=== PATIENT | male | born 1960 | race Caucasian/White ===

== ENCOUNTER 2020-02-08 15:13 | Emergency (ER) | payer OTHER, SELFPAY ==
[2020-02-08 15:31] VITALS: BP 113/71; PULSE 69; RESP 18; TEMP 37.3; O2SAT 97
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
[2020-02-08] MEDS: TETANUS,DIPHTHERIA,AC PERTUSSIS ADULT (0.5 ML) BOOSTRIX IM (15:49)
== END 2020-02-08 15:59 | disposition home or self-care (01) ==
PROVIDERS: Emergency Provider Nurse Practitioner; PCP Family Medicine
DX: T22.212A Burn of second degree of left forearm, initial encounter (principal); X08.8XXA Exposure to other specified smoke, fire and flames, initial encounter; L25.9 Unspecified contact dermatitis, unspecified cause; Z23 Encounter for immunization; I10 Essential (primary) hypertension
CPT/HCPCS: 90471; 90715; 99213; G0463

== ENCOUNTER 2023-08-05 18:05 | Emergency (ER) | payer OTHER, SELFPAY ==
[2023-08-05 18:28] VITALS: BP 127/75; PULSE 74; RESP 14; TEMP 36.4; O2SAT 100
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
== END 2023-08-05 19:15 | disposition home or self-care (01) ==
PROVIDERS: Emergency Provider Nurse Practitioner; PCP Physician Assistant
DX: S61.012A Laceration without foreign body of left thumb without damage to nail, initial encounter (principal); W45.8XXA Other foreign body or object entering through skin, initial encounter; I10 Essential (primary) hypertension; M10.9 Gout, unspecified
CPT/HCPCS: 12002; 99212; G0463

== ENCOUNTER 2023-10-04 15:59 | Emergency (ER) | payer OTHER, SELFPAY ==
[2023-10-04 16:06] VITALS: BP 121/82; PULSE 88; RESP 20; TEMP 36.7; O2SAT 100
--- NOTE | 2023-10-04 16:36 | ECG_ITS ---
SEE SCANNED COPY FOR CONFIRMED REPORT MTDD
--- NOTE | 2023-10-04 16:37 | ED.SOB ---
HPI - SOB/Dyspnea General Chief Complaint: Shortness of Breath/Dyspnea Stated Complaint: SOB Time Seen by Provider: 10/04/23 16:26 Source: patient and RN notes reviewed Mode of arrival: ambulatory Limitations: no limitations History of Present Illness HPI Narrative: Patient presents today with a 3-4 day history of shortness of breath and chest tightness with mild cough. Denies fever, or recent illness. States he does have some allergy symptoms such as postnasal drainage which he has been taking Zyrtec and Flonase for. He also reports some chest discomfort when he takes a deep breath. Denies any cardiac or pulmonary history aside from asthma as a child. Review of his chart shows that he takes lisinopril. Related Data Home Medications Medication Instructions Recorded Confirmed lisinopril 20 mg tablet 20 mg PO DAILY 02/08/20 10/04/23 allopurinol 100 mg tablet 100 mg PO DAILY 08/05/23 10/04/23 cetirizine 10 mg PO DAILY 10/04/23 10/04/23 fluticasone propionate 50 2 spray intranasal DAILY PRN 10/04/23 10/04/23 mcg/actuation nasal Allergy Symptoms spray,suspension (Flonase Allergy Relief) Allergies Allergy/AdvReac Type Severity Reaction Status Date / Time No Known Allergies Allergy Mild Verified 10/04/23 16:13 Review of Systems Review of Systems: CONSTITUTIONAL: Denies body aches, fever, chills, or sweats. EYES: Denies visual changes, redness, or discharge. ENT: Denies rhinorrhea, congestion, sore throat, or otalgia. CARDIOVASCULAR: Denies chest pain, palpitations, or edema.+ chest tightness and discomfort RESPIRATORY: + shortness of breath, mild cough GASTROINTESTINAL: Denies abdominal pain, nausea, vomiting, or diarrhea. GENITOURINARY: Denies dysuria or hematuria. SKIN: Denies rash, itching, or wounds. MUSCULOSKELETAL: Denies back pain, joint pain, or myalgia. NEUROLOGIC: Denies headache, numbness, tingling, or weakness. PSYCH: Denies depression or anxiety. [facility] Past Medical History Medical History (Updated 10/04/23 @ 17:04 by Angelita Hernández, SUPERIOR COURT JUSTICE, [place]) Gout Hypertension Comments At time of signature, I have reviewed and agree with nursing past medical, surgical, social and family history unless otherwise noted. Please see nursing chart for further information. There is no relevant family history pertinent to the presenting complaint Exam Narrative: GENERAL: Well-appearing, well-nourished, and in no acute distress. HEAD: Normocephalic, atraumatic. EYES: EOMI. No redness or drainage. Conjunctivae normal. ENT: Mucous membranes pink and moist. Nares clear. No rhinorrhea. TMs normal bilaterally. Throat normal. Uvula midline. NECK: Normal AROM. Supple. No lymphadenopathy. CHEST: No respiratory distress. Clear to auscultation. Chest is nontender. HEART: Regular rate and rhythm. No murmur appreciated. EXTREMITIES: Normal range of motion. No edema. SKIN: Warm, dry, no rash. Capillary refill normal. Normal skin turgor. NEURO: No focal deficits. Alert and oriented x3. Gait steady. PSYCH: Normal affect. No signs of depression or anxiety. Course Course Level of Care: Express Care Visit Vital Signs Vital signs: Vital Signs Temperature 98.1 F 10/04/23 16:06 Pulse Rate 88 10/04/23 16:06 Respiratory Rate 20 10/04/23 16:06 Blood Pressure 121/82 10/04/23 16:06 Pulse Oximetry 100 10/04/23 16:06 Oxygen Delivery Room Air 10/04/23 16:06 Temperature 98.1 F 10/04/23 16:06 Pulse Rate 88 10/04/23 16:06 Respiratory Rate 20 10/04/23 16:06 Blood Pressure 121/82 10/04/23 16:06 Pulse Oximetry 100 10/04/23 16:06 Oxygen Delivery Room Air 10/04/23 16:06 Reviewed MDM - SOB/Dyspnea MDM Narrative Medical decision making narrative: EKG normal. Offered patient transfer to the ER for further evaluation. He has declined. Would like to call his fitting room associate tomorrow. Discussed if symptoms worsen that he needs to go to the ER for further evaluation. Kacie
== END 2023-10-04 17:15 | disposition home or self-care (01) ==
PROVIDERS: Emergency Provider Nurse Practitioner; PCP Physician Assistant
DX: R06.02 Shortness of breath (principal); M10.9 Gout, unspecified; I10 Essential (primary) hypertension
CPT/HCPCS: 93005; 99213; G0463

== ENCOUNTER 2024-03-08 11:48 | Emergency (ER) | payer OTHER, SELFPAY ==
[2024-03-08 11:58] VITALS: BP 113/75; PULSE 90; RESP 16; TEMP 36.9; O2SAT 99
--- NOTE | 2024-03-08 12:23 | ED.UPPEXIN ---
HPI - Extremity Injury (Upper) General Chief Complaint: Extremity Injury, Upper Stated Complaint: Left Elbow Pain Time Seen by Provider: 03/08/24 12:23 Source: patient Mode of arrival: ambulatory Limitations: no limitations History of Present Illness HPI narrative: 64 yo M presents with pain to L elbow for 1 week. Worse with movement. Denies injury. Reports recent moving boxes and pain started shortly after. Has had tennis elbow in the past and was given steroid dosepak. Denies numbness/tingling. NV intact. All systems reviewed and negative except as noted above. Related Data Home Medications Medication Instructions Recorded Confirmed lisinopril 20 mg tablet 20 mg PO DAILY 02/08/20 03/08/24 allopurinol 100 mg tablet 100 mg PO DAILY 08/05/23 03/08/24 cetirizine 10 mg PO DAILY 10/04/23 03/08/24 fluticasone propionate 50 2 spray intranasal DAILY PRN 10/04/23 03/08/24 mcg/actuation nasal Allergy Symptoms spray,suspension (Flonase Allergy Relief) Allergies Allergy/AdvReac Type Severity Reaction Status Date / Time No Known Allergies Allergy Mild Verified 03/08/24 12:01 Review of Systems Review of Systems: CONSTITUTIONAL: Denies fever, chills, or sweats. EYES: Denies visual changes, redness, or discharge. ENT: Denies rhinorrhea, congestion, sore throat, or otalgia. CARDIOVASCULAR: Denies chest pain, palpitations, or edema. RESPIRATORY: Denies cough or dyspnea. GASTROINTESTINAL: Denies abdominal pain, nausea, vomiting, or diarrhea. GENITOURINARY: Denies dysuria or hematuria. SKIN: Denies rash or itching. MUSCULOSKELETAL: Denies back pain, joint pain, or myalgia. Reports pain to left elbow. NEUROLOGIC: Denies headache, numbness, or weakness. PSYCHIATRIC: Denies anxiety or depression. All other systems reviewed are negative, except as documented in HPI. PMFSH Past Medical History Medical History (Updated 03/08/24 @ 12:33 by Raquel Carolina NP) Gout Hypertension Comments At time of signature, agree with nursing past medical, surgical, social and family history. There is no relevant family history pertinent to the presenting complaint. Exam Narrative: GENERAL: This is a well-nourished, well-developed patient, in no apparent distress. HEAD: normocephalic, atraumatic. EYES: PERRL. Sclera clear/white. Vision is grossly intact. EARS: External ears normal NOSE: External nose normal NECK: Neck supple, non-tender without lymphadenopathy, masses or thyromegaly. CARDIOVASCULAR: Regular rate and rhythm without murmurs, gallops, or rubs. RESPIRATORY: Clear to auscultation. Breath sounds equal bilaterally. No wheezes, rales, or rhonchi. SKIN: warm, Dry, intact with no suspicious lesions or rash, good texture and turgor. NEURO: awake, alert, and oriented to person, place and time. There were no obvious focal neurologic abnormalities. EXTREMITIES: tenderness to lateral epicondyle L elbow with extensor tendon pain. ROM and distal NV intact. 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 Course Course Level of Care: Express Care Visit Vital Signs Vital signs: Vital Signs Temperature 36.9 C 03/08/24 11:58 Pulse Rate 90 03/08/24 11:58 Respiratory Rate 16 03/08/24 11:58 Blood Pressure 113/75 03/08/24 11:58 Pulse Oximetry 99 03/08/24 11:58 Oxygen Delivery Room Air 03/08/24 11:58 Temperature 36.9 C 03/08/24 11:58 Pulse Rate 90 03/08/24 11:58 Respiratory Rate 16 03/08/24 11:58 Blood Pressure 113/75 03/08/24 11:58 Pulse Oximetry 99 03/08/24 11:58 Oxygen Delivery Room Air 03/08/24 11:58 Reviewed MDM - Extremity Injury (Upper) MDM Narrative Medical decision making narrative: At time of signature, agree with nursing past medical, surgical, social and family history. There is no relevant family history pertinent to the presenting complaint. Differential Diagnosis Differential diagnosis: Likely other ( tennis elbow, tendinitis) Discharge Plan Disch
== END 2024-03-08 12:37 | disposition home or self-care (01) ==
PROVIDERS: Emergency Provider Nurse Practitioner Family; PCP Physician Assistant
DX: M77.12 Lateral epicondylitis, left elbow (principal); I10 Essential (primary) hypertension; M10.9 Gout, unspecified
CPT/HCPCS: 99213; G0463

== ENCOUNTER 2024-08-11 13:42 | Emergency (ER) | payer OTHER, SELFPAY ==
[2024-08-11 13:57] VITALS: BP 150/84; PULSE 78; RESP 16; TEMP 36.1; O2SAT 98
--- NOTE | 2024-08-11 14:12 | ED.URI ---
HPI - URI/Sore Throat General Chief Complaint: Upper Respiratory Infection Stated Complaint: Cold symptoms, lump on back of right foot Time Seen by Provider: 08/11/24 14:00 Source: patient Mode of arrival: ambulatory Limitations: no limitations History of Present Illness HPI Narrative: 64-year-old male presents with complaint of sinus congestion, pressure, nasal congestion for 2-3 weeks. Reports postnasal drainage. Using Flonase and [id number] sinus meds with no relief of symptoms. Afebrile. Patient also reports pain to right heel for 2 days. No known injury. Recently started doing pushups but is not sure if this could be the cause of pain. All systems reviewed and negative except as noted above. Related Data Home Medications ?Medication ?Instructions ?Recorded ?Confirmed ?Last Taken ?Type allopurinol 100 mg tablet 100 mg PO DAILY 08/05/23 03/08/24 Unknown History cetirizine 10 mg PO DAILY 10/04/23 03/08/24 Unknown History fluticasone propionate 50 2 spray intranasal DAILY PRN 10/04/23 03/08/24 Unknown History mcg/actuation nasal Allergy Symptoms spray,suspension (Flonase Allergy Relief) lisinopril 10 mg tablet mg 08/11/24 Unknown History Allergies Allergy/AdvReac Type Severity Reaction Status Date / Time No Known Allergies Allergy Mild Verified 08/11/24 13:55 Review of Systems Review of Systems: CONSTITUTIONAL: Denies fever, chills, or sweats. EYES: Denies visual changes, redness, or discharge. ENT: Reports rhinorrhea, congestion, sinus pressure, congestion. Denies sore throat, or otalgia. CARDIOVASCULAR: Denies chest pain, palpitations, or edema. RESPIRATORY: Denies cough or dyspnea. GASTROINTESTINAL: Denies abdominal pain, nausea, vomiting, or diarrhea. GENITOURINARY: Denies dysuria or hematuria. SKIN: Denies rash or itching. MUSCULOSKELETAL: Denies back pain, joint pain, or myalgia. reports pain to right Achilles tendon. NEUROLOGIC: Denies headache, numbness, or weakness. PSYCHIATRIC: Denies anxiety or depression. All other systems reviewed are negative, except as documented in HPI. [facility], LATER [facility] Past Medical History Medical History (Updated 08/11/24 @ 14:22 by Raquel Carolina NP) Gout Hypertension Comments At time of signature, agree with nursing past medical, surgical, social and family history. There is no relevant family history pertinent to the presenting complaint. Exam Narrative: GENERAL: This is a well-nourished, well-developed patient, in no apparent distress. HEAD: normocephalic, atraumatic. EYES: PERRL. Sclera clear/white. Vision is grossly intact. EARS: External ears normal, auditory canals clear and without drainage, Fluid bilateral TMs without erythema or perforation. Hearing grossly intact. NOSE: External nose normal with Moderate congestion, purulent nasal drainage, erythema and swelling to bilateral nares. Frontal sinus tenderness on palpation. THROAT: Mucous membranes moist, Mild erythema With postnasal drainage. No swelling or exudates. NECK: Neck supple, non-tender without lymphadenopathy, masses or thyromegaly. CARDIOVASCULAR: Regular rate and rhythm without murmurs, gallops, or rubs. RESPIRATORY: Clear to auscultation. Breath sounds equal bilaterally. No wheezes, rales, or rhonchi. SKIN: warm, Dry, intact with no suspicious lesions or rash, good texture and turgor. NEURO: awake, alert, and oriented to person, place and time. There were no obvious focal neurologic abnormalities. EXTREMITIES: tenderness on palpation of Achilles tendon without erythema or swelling. Course Course Level of Care: Express Care Visit Vital Signs Vital signs: Vital Signs Temperature 36.1 C L 08/11/24 13:57 Pulse Rate 78 08/11/24 13:57 Respiratory Rate 16 08/11/24 13:57 Blood Pressure 150/84 H 08/11/24 13:57 Pulse Oximetry 98 08/11/24 13:57 Oxygen Delivery Room Air 08/11/24 13:57 Temperature 36.1 C L 08/11/24 13:57 Pulse Rate 78 08/11/24 13:57 Respiratory Rate 16 08/11/24 13:57 Blood Pressure 150/84 H 08/11/24 13:57 Pulse Oximetry 98 08/11/24 13:57 Oxygen Delivery Room Air 08/11/24 13:57 Reviewed MDM - URI/Sore Throat MDM Narrative Medical decision making narrative: will treat patient for bacterial sinusitis due to duration of symptoms. Will prescribe meloxicam for right Achilles tendinitis. X-ray not warranted due to no swelling or deformity or injury. It is possible new activity of pushups is causing Achilles tendinitis. Recommend patient modify his position with doing pushups. Recommend care physician if symptoms not improving. Please be advised this is a medical document. It is intended for jqqn-fo-qdho communication. It is written in medical language and may contain unfamiliar abbreviations or verbiage. Medical documents are intended to carry relevant information, facts as evident, and the clinical opinion of the practitioner at the time of the encounter. This report may have been done utilizing a voice recognition system. Attempts have been made to correct errors. However, there may be uncorrected grammatical, spelling, and recognition errors present. The file time of this note does not necessarily represent the time of service. Differential Diagnosis Differential diagnosis: Likely upper respiratory infection, sinusitis and viral infection Discharge Plan Discharge Clinical Impression: Achilles tendinitis of right lower extremity, Acute bacterial sinusitis Patient Disposition: Home, Self-Care Condition: Stable Instructions: Sinusitis (ED), Achilles Tendinitis (ED) Additional Instructions: Take medications as prescribed. Continue [id number] Flonase daily as directed on packaging. Apply ice as needed for pain to Achilles tendon. Do stretching exercises as tolerated. Follow up with your doctor pain improving. Patient Language: [place] Prescriptions: New doxycycline hyclate 100 mg capsule 100 mg PO BID 7 Days Qty: 14 0RF meloxicam 7.5 mg tablet 7.5 mg PO DAILY Qty: 30 0RF methylprednisolone [Medrol (Jose M)] 4 mg tablets,dose pack See Rx Instructions PO .COMPLEX Qty: 21 0RF Rx Instructions: orally per package directions No Action allopurinol 100 mg tablet 100 mg PO DAILY fluticasone propionate [Flonase Allergy Relief] 50 mcg/actuation [place],Suspension 2 spray INTRANASAL DAILY PRN (Reason: Allergy Symptoms) Rx Instructions: administer into each nostril cetirizine 10 mg PO DAILY methylprednisolone [Medrol (Jose M)] 4 mg tablets,dose pack See Rx Instructions PO .COMPLEX Qty: 21 0RF Rx Instructions: orally per package directions lisinopril 10 mg tablet Follow-up/Referrals: PHYSICIAN NOT ON STAFF,NONSTAFF [Primary Care Provider] - Time of Disposition: 14:23
== END 2024-08-11 14:30 | disposition home or self-care (01) ==
PROVIDERS: Emergency Provider Nurse Practitioner Family
DX: M76.61 Achilles tendinitis, right leg (principal); J01.90 Acute sinusitis, unspecified; I10 Essential (primary) hypertension; M10.9 Gout, unspecified
CPT/HCPCS: 99213; G0463

== ENCOUNTER 2025-02-26 15:17 | Emergency (ER) | payer OTHER, SELFPAY ==
--- OUTSIDE RECORDS SUMMARY | 2023-12-02 16:30 | XMS_ITS ---
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 Conversion Encounter Medications Medication SIG (Take, Route, Frequency, Duration) Notes Start Date End Date Status Lisinopril 10 MG 1 tab(s) orally once a day Active SIT (TRADITIONAL) VARIABLE PER SCHEDULE SC PER SCHEDULE; Duration: TO BE DETERMINED *Please review for potential replacement for e-prescription and drug interaction check* Active NASAL WASHES N/A DIRECTED INTRANASALLY NEEDED; Duration: 30 *Please review for potential replacement for e-prescription and drug interaction check* Active Auvi-Q 0.3 MG/0.3ML 0.3 mg intramuscularly once; Duration: 30 day(s) Active Flonase Allergy Relief 50 MCG/ACT 2 spray(s) intranasally (avoid nasal septum) once a day; Duration: 30 day(s) Active ZyrTEC Allergy 10 MG 1 tab(s) orally once a day Active PAZEO 0.7% 1 GTT IN EACH AFFECT ED EYE ONCE A DAY *Please review for potential replacement for e-prescription and drug interaction check* Active EpiPen 2-Jose M 0.3 MG/0.3ML as directed intramuscularly once; Duration: 30 day(s) 06/16/2021 Active Encounters Encounter Location Date Provider Diagnosis [facility] [address] [place] [address] 12/02/2023 Provider ZFahad-Migration Plan Of Treatment No Information Progress Notes * [place]:1960 (65 yo M)Acc No.[id number]:12/02/2023 Patient: Dieudonne WILSON Provider: Chrissy Sepulveda :1960 A ge:63 Y S ex:Male Date:12/02/2023 Address:[address] [place], [place] [id number] Pcp:Celio Senior MD Subjective: * Chief Complaints: * 1 . [facility] Conversion Encounter. * Medical History: * Medications: T aking Lisinopril 10 MG Tablet 1 tab(s) orally once a day , Taking PAZEO 0.7% SOLUTION 1 GTT IN EACH AFFECTED EYE ONCE A DAY , Notes to Pharmacist: *Please review for potential replacement for e-prescription and drug interaction check*, Taking EpiPen 2-Jose M 0.3 MG/0.3ML Solution Auto-injector as directed intramuscularly once , Taking ZyrTEC Allergy 10 MG Tablet 1 tab(s) orally once a day , Taking Flonase Allergy Relief 50 MCG/ACT Suspension 2 spray(s) intranasally (avoid nasal septum) once a day , Taking NASAL WASHES N/A 1 QUART OF STERILIZED TAP WATER OR DISTILLED WATER, 1 TSP NACL, 1 PINCH OF BAKING SODA DIRECTED INTRANASALLY NEEDED , Notes to Pharmacist: *Please review for potential replacement for e-prescription and drug interaction check*, Taking Auvi-Q 0.3 MG/0.3ML Solution Auto-injector 0.3 mg intramuscularly once , Taking SIT (TRADITIONAL) VARIABLE SEE RECORD PER SCHEDULE SC PER SCHEDULE , Notes to Pharmacist: *Please review for potential replacement for e-prescription and drug interaction check* Objective: * Vitals: Assessment: Plan: * Treatment: * Billing Information: * Visit Code: * Procedure Codes: * Electronic signature of Argelia schaffer [facility]-Migration on 02/26/2025 at 03:41 PM CDT Sign off status: Pending * Provider: Chrissy Sepulveda Date: 0 12/02/2023 Generated for Richard barker/Radha/Katyaitting on: 0 02/26/2025 03:41 PM CDT
--- NOTE | ~2025-02-26 | XR_ITS ---
EXAMINATION: XR ankle LT min 3V, 02/26/2025 15:23 CDT HISTORY: lateral pain, twisting mechanism COMPARISON: No comparisons available. Findings: There is a remote corticated fracture of the medial malleolus, no acute fracture identified No significant degenerative changes. Soft tissues unremarkable. Impression: No acute fracture or malalignment. Reviewed, dictated and finalized at location A. Impression: No acute fracture or malalignment.
[2025-02-26 15:25] VITALS: BP 140/91; PULSE 95; RESP 18; TEMP 36.1; O2SAT 100
--- NOTE | 2025-02-26 15:26 | ED.GENADULT ---
HPI - General Adult General Chief complaint: Extremity Injury, Lower Stated complaint: L ankle pain Source: patient Mode of arrival: ambulatory Limitations: no limitations History of Present Illness HPI narrative: Pt is a 65 y/o male presenting with c/o L. ankle pain s/p injury. Pt reports slipping on gravel last night, causing him to 'roll' his L. ankle. He states he fell onto his buttocks. He denies striking his head. He denies LOC. He denies feeling dizzy or lightheaded prior to fall. 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 NO paresthesias. No hx of previous fracture to the LLE. No additional complaints. Related Data Home Medications ?Medication ?Instructions ?Recorded ?Confirmed ?Last Taken ?Type allopurinol 100 mg tablet 100 mg PO DAILY 08/05/23 02/26/25 Unknown History cetirizine 10 mg PO DAILY 10/04/23 02/26/25 Unknown History fluticasone propionate 50 2 spray intranasal DAILY PRN 10/04/23 02/26/25 Unknown History mcg/actuation nasal Allergy Symptoms spray,suspension (Flonase Allergy Relief) lisinopril 10 mg tablet mg 08/11/24 Unknown History Allergies Allergy/AdvReac Type Severity Reaction Status Date / Time No Known Allergies Allergy Mild Verified 02/26/25 15:19 Review of Systems Review of Systems: CONSTITUTIONAL: Denies body aches, fever, chills, or sweats. EYES: Denies visual changes, redness, or discharge. ENT: Denies rhinorrhea, congestion, sore throat, or otalgia. CARDIOVASCULAR: Denies chest pain, palpitations, or edema. RESPIRATORY: Denies cough or dyspnea. GASTROINTESTINAL: Denies abdominal pain, nausea, vomiting, or diarrhea. GENITOURINARY: Denies dysuria or hematuria. SKIN: Denies rash, itching, or wounds. MUSCULOSKELETAL: reports left ankle pain, lateral aspect. denies neck pain denies back pain NEUROLOGIC: Denies headache, numbness, tingling, or weakness. PSYCH: Denies depression or anxiety. All systems reviewed & are unremarkable except as noted in HPI and below (HPI) PMFSH Past Medical History Medical History Gout Hypertension Exam Narrative: GENERAL: Well-appearing, well-nourished, and in no acute distress. HEAD: Normocephalic, atraumatic. EYES: EOMI. No redness or drainage. Conjunctivae normal. NECK: Normal AROM. Supple. CHEST: No respiratory distress. HEART: Regular rate Normal peripheral pulses. MUSCULOSKELETAL: No bony tenderness. EXTREMITIES: +edema to the lateral aspect of the L. ankle. Unable to elicit any TTP. +FROM but does report pain with passive inversion and eversion. The LLE is without erythema, ecchymosis, open wounds. SKIN: Warm, dry, no rash. Capillary refill normal. Normal skin turgor. NEURO: No focal deficits. Alert and oriented x3. Gait steady. PSYCH: Normal affect. No signs of depression or anxiety. Course Course Level of Care: Express Care Visit Vital Signs Vital signs: Vital Signs Temperature 97.0 F L 02/26/25 15:25 Pulse Rate 95 02/26/25 15:25 Respiratory Rate 18 02/26/25 15:25 Blood Pressure 140/91 H 02/26/25 15:25 Pulse Oximetry 100 02/26/25 15:25 Oxygen Delivery Room Air 02/26/25 15:25 Temperature 97.0 F L 02/26/25 15:25 Pulse Rate 95 02/26/25 15:25 Respiratory Rate 18 02/26/25 15:25 Blood Pressure 140/91 H 02/26/25 15:25 Pulse Oximetry 100 02/26/25 15:25 Oxygen Delivery Room Air 02/26/25 15:25 Medical Decision Making MDM Narrative Medical decision making narrative: Discussed elevated blood pressure readings with patient and advised daily BP monitoring and f/u with PCP if persisting. Vital Signs Vital Signs: Vital Signs Temperature 97.0 F L 02/26/25 15:25 Pulse Rate 95 02/26/25 15:25 Respiratory Rate 18 02/26/25 15:25 Blood Pressure 140/91 H 02/26/25 15:25 Pulse Oximetry 100 02/26/25 15:25 Oxygen Delivery Room Air 02/26/25 15:25 Temperature 97.0 F L 02/26/25 15:25 Pulse Rate 95 02/26/25 15:25 Respiratory Rate 18 02/26/25 15:25 Blood Pressure 140/91 H 02/26/25 15:25 Pulse Oximetry 100 02/26/25 15:25 Oxygen Delivery Room Air 02/26/25 15:25 Imaging Data Radiologist's impression: NAF, old fracture to medial malleolus Discharge Plan Discharge Clinical Impression: Ankle sprain and strain, HTN (hypertension) Patient Disposition: Home Condition: Stable Instructions: Ankle Sprain (ED) Patient Language: Georgian Prescriptions: No Action allopurinol 100 mg tablet 100 mg PO DAILY fluticasone propionate [Flonase Allergy Relief] 50 mcg/actuation [place],Suspension 2 spray INTRANASAL DAILY PRN (Reason: Allergy Symptoms) Rx Instructions: administer into each nostril cetirizine 10 mg PO DAILY methylprednisolone [Medrol (Jos Em)] 4 mg tablets,dose pack See Rx Instructions PO .COMPLEX Qty: 21 0RF Rx Instructions: orally per package directions lisinopril 10 mg tablet meloxicam 7.5 mg tablet 7.5 mg PO DAILY Qty: 30 0RF methylprednisolone [Medrol (Jose M)] 4 mg tablets,dose pack See Rx Instructions PO .COMPLEX Qty: 21 0RF Rx Instructions: orally per package directions Follow-up/Referrals: PHYSICIAN,DISABILITY INSURANCE HEARING OFFICER [Primary Care Provider, Internal Medicine] - 02/27/25 Time of Disposition: 15:57
--- OUTSIDE RECORDS SUMMARY | 2025-02-26 15:42 | XMS_ITS | Clinical Summary ---
Author Organization [facility] Address [address] [place] [address] Care Team Providers Care Tribal Council Member Name Role Phone Celio Senior MD Primary Care Provider Unav ailable Source Comments [facility],non-owned Affiliates and Associated Physician Practices is amultiple site organization consisting of ambulatory clinics and hospital sitesin [place], [place], [place] and [place]. This disclosure is being madepursuant to the Care Everywhere program and may not contain all information available regarding this patient. 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 Gender Identity Not on file Sexual Orientation Not on file Plan of Treatment Health Maintenance Due Date Last Done Comments COLOGUARD (AGES 45-75) - COL ON CA SCREENING 1962 COLON MONITORING 1962 COLONOSCOPY - COLON CA SCREENING 1962 CT COLONOGRAPHY - COLON CA SCREENING 1962 Colorectal Cancer Screening 1962 FIT - COLON CA SCREENING 1962 FLEX SIG - COLON CA SCREENING 1962 LIPID TESTING 1962 HIV SCREENING 1977 HEPATITIS C SCREENING 01/19/1980 DTAP/TDAP/TD VACCINES (1 - Tdap) 1981 PNEUMOCOCCAL VACCINE 50+ (1 of 1 - PCV) 01/24/2012 ZOSTER VACCINE (1 of 2) 01/24/2012 DEPRESSION SCREENING 06/19/2024 COVID-19 VACCINE (1 - 2023-2 5 season) 2025 INFLUENZA VACCINE (#1) 2025 Respiratory Syncytial Virus (RSV) Vaccine Pt: or over 60 yrs (1 - 1-dose 75+ series) 2037 HEPATITIS B VACCINE Aged Out No longe r eligible based on patient's age to complete this topic HIB VACCINE Aged Out No longer eligi ble based on patient's age to complete this topic HPV VACCINE Aged Out No longer eligi ble based on patient's age to complete this topic MENINGOCOCCAL (Group B) VACC INE SHARED DECISION-MAKING Aged Out No longer eligibl e based on patient's age to complete this topic MENINGOCOCCAL GROUPS A/C/Y/W VACCINE Aged Out No longer eligible b ased on patient's age to complete this topic Insurance AETNA Care Teams Tribal Council Member Relationship Specialty Start Date End Date Celio Senior MD PCP - General 03/12/09
--- OUTSIDE RECORDS SUMMARY | 2025-02-26 15:42 | XMS_ITS | Encounter Summary ---
Author Organization [facility] Address [address] [place] [address] Care Team Providers Care School Physical Therapist Name Role Phone Celio Senior MD Primary Care Provider Unav ailable Encounter Details Date Type Department Care Team (Late st Contact Info) Description 04/11/2023 Lab Requisition [facility] - DermPath Lab [address], [facility] [place] [address] Manda Crowell MD [address] [facility] [address] [place] [address] Social History Tobacco Use Types Packs/Day Years Used Date Smoking Tobacco: Never Assessed Sex and Gender Information Value Date Recorded Sex Assigned at Not on file 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 Gender Identity Not on file Sexual Orientation Not on file documented as of this encounter Plan of Treatment Not on file documented as of this encounter Procedures Procedure Name Priority Date/Time Associated Diagnosis Comments DERMATOPATHOLOGY Routine 04/11/2023 3:06 PM CDT documented in this encounter Results * DERMATOPATHOLOGY (04/11/2023 3:06 PM CDT) Case Report Dermatopathology Report Case: [id number] Authorizing Provider: Manda Crowell MD Collected: 04/11/2023 03:06 PM Ordering Location: [facility] D[facility] Lab Received: 04/12/2023 11:26 AM Pathologist: Tika Guzmán MD Specimen: Skin, right nares 12:58 PM CDT DERMATOPATHOLOGY LABORATORY Final Diagnosis Specimen A. 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 AF 12:58 PM CDT DERMATOPATHOLOGY LABORATORY Gross Description Specimen A: Received is one formalin filled container labeled with the patient's name and designated right nares. The specimen consists of a shave biopsy measuring 2x2x1 mm. Jar 0. 12:58 PM CDT DERMATOPATHOLOGY LABORATORY Microscopic Description Specimen A. SKIN, right nares: Neutrophils, histiocytes, and multinucleated giant cells are present within the dermis. 12:58 PM CDT DERMATOPATHOLOGY LABORATORY Disclaimer An external and internal positive and negative controls are appropriate for the histochemical, immunohistochemical and immunofluorescence stain(s) in this case (if any), except where stated explicitly. The performance characteristics of the stain(s) cited in this report were developed and its performance characteristic determined by the Dermatopathology Laboratory at [facility], directed by Dr. Niki Fleming. These tests need not be, and therefore are not, approved by the [place] Food and Drug Administration. The tests are used for clinical purposes. Billing Codes Specimen Charges Stain Charges 35532 1 12:58 PM CDT DERMATOPATHOLOGY LABORATORY Embedded Images 12:58 PM CDT DERMATOPATHOLOGY LABORATORY Pathology/Cytolo gy TISSUE SPECIMEN FROM SKIN / Unknown 04/11/2023 3:06 PM CDT 04/12/2023 11:26 AM CDT Manda Crowell MD LAB - PATHOLOGY/CYTOLOGY OR DERABLES Final Result DERMATOPATHOLOGY LABORATORY [facility] - Department of Dermatology [facility] Medicine [address] [place] [address], [address] [place] [address], [facility] [phone] documented in this encounter Visit Diagnoses Not on filedocumented in this encounter Care Teams School Physical Therapist Relationship Specialty Start Date End Date Celio Senior MD PCP - General 03/12/09 documented as of this encounter
--- OUTSIDE RECORDS SUMMARY | 2025-02-26 15:42 | XMS_ITS | Patient Health Record ---
Author Organization [facility] [employer] [place] ([address]) Address [address] [place] [address] Care Team Providers Care Lyric Writer Name Role Phone Celio Senior MD Primary Care Provider Aysha Mcdonald Unavailable [phone] Allergies No Known Allergies Reason For Referral No Information Medications Medication SIG (Take, Route, Frequency, Duration) Notes Start Date End Date Status Lisinopril 10 MG 1 tab(s) orally once a day Active FLONASE 0.05 mg/inh 2 spray(s) intranasally (avoid nasal septum) once a day; Duration: 30 day(s) Active ZYRTEC 10 mg 1 tab(s) orally once a day Active AUVI-Q 0.3 mg 0.3 mg intramuscular ly once; Duration: 30 day(s) Active LISINOPRIL 10 mg 1 tab(s) orally once a day Active EPIPEN 2-JOSE M 0.3 mg as directed intramuscularly once; Duration: 30 day(s) 06/16/2021 Active SIT (TRADITIONAL) VARIABLE PER SCHEDULE SC PER SCHEDULE; Duration: TO BE DETERMINED *Please review for potential replacement for e-prescription and drug interaction check* Active NASAL WASHES N/A DIRECTED INTRANASALLY NEEDED; Duration: 30 *Please review for potential replacement for e-prescription and drug interaction check* Active Auvi-Q 0.3 MG/0.3ML 0.3 mg intramuscularly once; Duration: 30 day(s) Active ZyrTEC Allergy 10 MG 1 tab(s) orally once a day Active Flonase Allergy Relief 50 MCG/ACT 2 spray(s) intranasally (avoid nasal septum) once a day; Duration: 30 day(s) Active PAZEO 0.7% 1 GTT IN EACH AFFECT ED EYE ONCE A DAY *Please review for potential replacement for e-prescription and drug interaction check* Active EpiPen 2-Jose M 0.3 MG/0.3ML as directed intramuscularly once; Duration: 30 day(s) 06/16/2021 Active Immunizations Vaccine Route Administration Date Status Comme nts NOC Fluzone Quadrivalent Unknown 04/26/2018 Refused NOC Flucelevax Quadrivalent Unknown 04/29/2020 Refused Social History Tobacco Use: Social History Observation Description Date Details (start date - stop date) Former Smoker NA - NA Smoking Smart Form: Question Answer Notes Are you a: former smoker How long it has been since you last smoked? > 10 years Problems Problem Type SNOMED Code ICD Code Onset Dates Problem Status W/U Status Risk Notes Problem Chronic allergic conjunctivitis (71060676) Other chronic allergic conjunctivitis (H10.45) Active confirmed Problem Allergic rhinitis caused by pollen (disorder) (78841809) Allergic rhinitis due to pollen (J30.1) Active confirmed Problem Allergic rhinitis caused by animal hair and dander (288552683586899) Allergic rhinitis due to animal (cat) (dog) hair and dander (J30.81) Active confirmed Problem Allergic rhinitis (01204069) Other allergic rhinitis (J30.89) Active confirmed Problem Allergic rhinitis caused by pollen (disorder) (38565596) Allergic rhinitis due to pollen (J30.1) Active confirmed Problem Allergic rhinitis caused by animal hair and dander (539296981642268) Allergic rhinitis due to animal (cat) (dog) hair and dander (J30.81) Active confirmed Problem Allergic rhinitis (61827791) Other allergic rhinitis (J30.89) Active confirmed Problem Chronic allergic conjunctivitis (14212977) Other chronic allergic conjunctivitis (H10.45) Active confirmed Problem Essential hypertension (12716140) Essential (primary) hypertension (I10) Active confirmed Plan Of Treatment No Information Insurance Providers Payer Name Payer Address Payer Phone Subscriber Number Group Number Insured Name Patient Relationship to Insured Coverage Start Date Coverage End Date [facility] [address] [place] [phone] [id number] Dieudonne Romero Self - patient is the insured Medical (General) History Medical History History ICD Code Essential (primary) hypertension Allergic rhinitis due to pollen J30.1 Allergic rhinitis due to animal (cat) (d og) hair and dander J30.81 Other allergic rhinitis J30.89 Other chronic allergic conjunctivitis H1 0.45 Surgical History Surgery Date(Month/Year) Right Shoulder/Wrist Surgery S/P Fall 08 03
--- OUTSIDE RECORDS SUMMARY | 2025-02-26 15:42 | XMS_ITS | Encounter Summary ---
Author Organization [facility] Address [address] [address] Care Team Providers Care Theater Teacher Name Role Phone Celio Senior MD Primary Care Provider Unav ailable Encounter Details Date Type Department Care Team (Late st Contact Info) Description 01/26/2023 Lab Requisition [facility] - DermPath Lab [address] [facility] [facility] [place] [address] Rowan Lloyd DO [address] [facility] [address] [place] [address] Social History Tobacco Use Types Packs/Day Years Used Date Smoking Tobacco: Never Assessed Sex and Gender Information Value Date Recorded Sex Assigned at Not on file 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 Gender Identity Not on file Sexual Orientation Not on file documented as of this encounter Plan of Treatment Not on file documented as of this encounter Procedures Procedure Name Priority Date/Time Associated Diagnosis Comments DERMATOPATHOLOGY Routine 01/26/2023 8:55 AM CDT documented in this encounter Results * DERMATOPATHOLOGY (01/26/2023 8:55 AM CDT) Case Report Dermatopathology Report Case: [id number] Authorizing Provider: Rowan Lloyd DO Collected: 01/26/2023 08:55 AM Ordering Location: [facility] DermPath Lab Received: 01/27/2023 07:03 AM Pathologist: Yumiko Lal MD Specimen: Skin, right hand 3 1:02 PM CDT DERMATOPATHOLOGY LABORATORY Final Diagnosis Specimen A. SKIN, right hand: TATTOO (L81.8) 3 1:02 PM CDT DERMATOPATHOLOGY LABORATORY at 1302 CDT Clinical History BLUE NEVUS R/O ATYPIA 1:02 PM CDT DERMATOPATHOLOGY LABORATORY Gross Description Specimen A: Received is one formalin filled container labeled with the patient's name and designated right hand. The specimen consists of a shave biopsy measuring 5x3x1 mm. Jar 0. 1:02 PM CDT DERMATOPATHOLOGY LABORATORY Microscopic Description Specimen A. SKIN, right hand: There is granular pigment in macrophages and free within the dermis. 1:02 PM CDT DERMATOPATHOLOGY LABORATORY Disclaimer An external and internal positive and negative controls are appropriate for the histochemical, immunohistochemical and immunofluorescence stain(s) in this case (if any), except where stated explicitly. The performance characteristics of the stain(s) cited in this report were developed and its performance characteristic determined by the Dermatopathology Laboratory at [facility], directed by Dr. Niki Fleming. These tests need not be, and therefore are not, approved by the [place] Food and Drug Administration. The tests are used for clinical purposes. Billing Codes Specimen Charges Stain Charges 64385 1 1:02 PM CDT DERMATOPATHOLOGY LABORATORY Embedded Images 1:02 PM CDT DERMATOPATHOLOGY LABORATORY Pathology/Cytolo gy TISSUE SPECIMEN FROM SKIN / Unknown 01/26/2023 8:55 AM CDT 01/27/2023 7:03 AM CDT us Rowan Lloyd DO LAB - PATHOLOGY/CYTOLOGY ORDERABLES Final Result DERMATOPATHOLOGY LABORATORY [facility] - Department of Dermatology [facility] Medicine [address] [place] [address], [address] [phone] documented in this encounter Visit Diagnoses Not on filedocumented in this encounter Care Teams Theater Teacher Relationship Specialty Start Date End Date Celio Senior MD PCP - General 03/12/09 documented as of this encounter
--- OUTSIDE RECORDS SUMMARY | 2025-02-26 15:42 | XMS_ITS | Clinical Summary ---
Author Organization 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 Gender Identity Not on file Sexual Orientation Not on file Plan of Treatment Health Maintenance Due Date Last Done Comments DTAP/TDAP/TD VACCINES (1 - Tdap) 1981 COLORECTAL SCREENING 2007 Colorectal Cancer Screening 2007 FIT-DNA Q 3 years 2007 FIT/FOBT Q 1 year 2007 Flex Sig/CT Colonography Q 5 years 2007 ZOSTER VACCINE (1 of 2) 01/24/2012 INFLUENZA VACCINE (#1) 2025 RSV VACCINE (60+ or ) (1 - 1-dose 75+ series) 2037 Insurance Equity [employer] OPEN ACCESS Care Teams Marine Consultant Relationship Specialty Start Date End Date Celio Senior MD [address] [place] [id number] PCP - General Family Practice 10/09/09
--- OUTSIDE RECORDS SUMMARY | 2025-02-26 15:43 | XMS_ITS | Clinical Summary ---
Author Organization [facility] Address [facility] [place] [address] Care Team Providers Care Assembling Inspector Name Role Phone Earline Trent PA-C Primary Care Provider [phone] Allergies No known active allergies Medications cetirizine (ZYRTEC) 10 MG tablet Take 1 tablet (10 mg total) by mouth daily. 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, unspecified laterality 08/15/2022 Primary hypertension 03/14/2021 Family History Medical History Relation Comments No Known Problems Brother Arthritis Mother Cancer Mother No Known Problems Sister Relation Status Comments Brother Alive Father Mother Sister Alive Social History Tobacco Use Types Packs/Day Years Used Date Smoking Tobacco: Former Cigarettes Smokeless Tobacco: Never Tobacco Cessation:Counseling Given: No Alcohol Use Standard Drinks/Week Comments Yes 33.3 (1 standard drink = 0.6 oz pure alcohol) Occ PHQ-2 Answer Date Recorded Patient Health Questionnaire-2 Score 0 09/18/2024 Sex and Gender Information Value Date Recorded Sex Assigned at Not on file Legal Sex Male 7:56 PM CDT Gender Identity Not on file Sexual Orientation Not on file Last Filed Vital Signs Vital Sign Reading Time Taken Comments Blood Pressure 108/70 09/18/2024 9:56 AM CDT Pulse 84 09/18/2024 9:56 AM CDT Temperature 35.9 C (96.7 F) 09/18/2024 9:56 AM CDT Respiratory Rate 18 09/18/2024 9:56 AM CDT Oxygen Saturation 98% 09/18/2024 9:56 AM CDT Inhaled Oxygen Concentration - - Weight 77 kg (169 lb 12.8 oz) 09/18/2024 9:56 AM CDT Height 172.7 cm (5' 8) 09/18/2024 9:56 AM CDT Body Mass Index 25.82 09/18/2024 9:56 AM CDT Plan of Treatment Upcoming Encounters Date Type Department Care Team (Late st Contact Info) Description 04/02/2025 10:20 AM CDT Office Visit [facility] - [place] [address] [place] [id number] Earline Trent PA-C [address] [place] [address] Health Maintenance Due Date Last Done Comments Pneumococcal Vaccine: 50+ Years (1 of 1 - PCV) 01/24/2012 Zoster Vaccines (1 of 2) 01/24/2012 COVID-19 Vaccine (3 - 2024-2 6 season) 2025 08/07/2020, 07/17/2020 Annual Physical 03/13/2025 03/13/2024 DTaP, Tdap and Td Vaccines ( 1 - Tdap) 09/16/2025 Postponed from 01/23 (Future Appointment) Colorectal Cancer Screening Colonoscopy (10 Years) 10/05/2025 10/06/2015 RSV Immunization or 60+ Years (1 - 1-dose 75+ series) 2037 Hepatitis C Completed 03/01/2022 PHQ-2 (Physician [place]) Completed 09/18/2024 Meningococcal B Vaccine Aged Out No l onger eligible based on patient's age to complete this topic Meningococcal Vaccine Aged Out No odessa cristine eligible based on patient's age to complete this topic RSV Immunizations Under 20 Months Aged Out No longer eligible b ased on patient's age to complete this topic Procedures Procedure Name Priority Date/Time Associated Diagnosis Comments HEPATITIS C ANTIBODY Routine 03/01/2022 7:05 AM CDT Need for hepatitis C screening test COLONOSCOPY GENERIC (SCAN ORDER) 10/06/2015 from Last 3 Months or Most Recently Relevant to Health Maintenance Results * HEPATITIS C ANTIBODY (03/01/2022 7:05 AM CDT) HEPATITIS C AB NON-REACTI VE NON-REACT KRISTINE 03/01/2022 10:09 PM CDT [facility] Comment: ANTIBODIES TO HCV NOT DETECTED. DOES NOT EXCLUDE THE POSSIBILITY OF EXPOSURE TO HCV. 03/01/2022 7:05 AM CDT us Earline Trent PA-C LABORATORY Final Resu lt [facility] [address] [place] [address], [phone] * COLONOSCOPY GENERIC (10/06/2015) 10/06/2015 Narrative 10/06/2015 Ordered by an unspecified provider. us Documents Scanned SCANNING Final Result from Last 3 Months or Most Recently Relevant to Health Maintenance Insurance LISSY SARMIENTO Care Teams Assembling Inspector Relationship Specialty Start Date End Date Earline Trent PA-C [address] [place] [address]. [place] [address] PCP - General PHYSICIAN SHEET METAL DUCT WORKER SUPERVISOR 02/03/21
== END 2025-02-26 16:00 | disposition home or self-care (01) ==
PROVIDERS: Emergency Provider Registered Nurse
DX: S93.402A Sprain of unspecified ligament of left ankle, initial encounter (principal); S96.912A Strain of unspecified muscle and tendon at ankle and foot level, left foot, initial encounter; X50.9XXA Other and unspecified overexertion or strenuous movements or postures, initial encounter; I10 Essential (primary) hypertension; M10.9 Gout, unspecified
CPT/HCPCS: 73610; 99213; G0463